=== PATIENT | female | born 1995 | race Caucasian/White ===

== ENCOUNTER 2024-05-16 09:09 | Outpatient (OUT) | payer OTHER, SELFPAY ==
--- NOTE | 2024-05-16 09:00 | CA_ITS ---
Patient Name: SILVIA WILKINS MR#: [id number] : 1995 Exam Date: 05/16/2024 Ordering Doctor: Non-Staff Physician ECHOCARDIOGRAM REPORT PROCEDURE: CA ECHO DOPPLER COMPLETE INDICATIONS: Palpitations, POTS COMPARISON: None. DESCRIPTION: COMPLETE ECHOCARDIOGRAM Real-time transthoracic echocardiography with 2D, M-mode, spectral and color flow Doppler performed. QUALITY: Technical quality was good. LEFT VENTRICLE: Normal chamber size. Normal left ventricular wall thickness. Normal systolic function. LV EF: Normal left ventricular ejection fraction, (>55%). DIASTOLIC: Normal diastolic function. ATRIAL SEPTUM: Visually appears intact. LEFT ATRIUM: Normal chamber size. RIGHT ATRIUM: Normal chamber size. RIGHT VENTRICLE: Normal chamber size. Normal right ventricular systolic function. TRICUSPID VALVE: Normal mobility and thickness. No stenosis with trivial regurgitation. Doppler studies reveal moderately (45-60) elevated right sided pressures. RVSP 52 mmHg MITRAL VALVE: Normal mobility and thickness. No evidence of mitral valve stenosis. There is no mitral annular calcification. Trivial mitral regurgitation. AORTIC VALVE: Normal trileaflet appearance. No visible sclerosis. Normal leaflet mobility. No evidence of aortic valve stenosis. No aortic regurgitation. AORTIC ROOT: Normal diameter and appearance. Ascending aorta is normal in size. PULMONIC VALVE: Normal thickness and mobility. No stenosis. No regurgitation. PERICARDIUM: No evidence of pericardial effusion. IVC: IVC is dilated (2.4 cm) with no collapse. PLEURA: CONCLUSION: 1. Normal left ventricular size and systolic function. LVEF is 55 to 60%. 2. Normal right ventricular size and systolic function. 3. No significant valvular dysfunction. 4. Moderately elevated right-sided pressures. RVSP is 52 mmHg. 5. Further investigation of causes of elevated right-sided pressures is recommended. Adult Echocardiography Procedure Report Left Ventricle LVEDD (3.7 - 5.6 cm): 4.85 cm LVESD (2.2 - 4.0 cm): 3.42 cm LVIVS thickness (0.6 - 1.2 cm): 0.75 cm LVPW thickness (0.5 - 1.0 cm): 0.49 cm E - e': 2.95 LVOT Max Gradient: 4.67 mm[Hg] LVOT Area (cm2): 1.08 m/s Peak Velocity (LVOT): 1.08 m/s Mean Velocity (LVOT): 0.73 m/s LVOT Diameter 2.13 cm Left Atrium LA Volume Index (2D A2C): 28.42 ml/m2 Left Atrium Systolic Dimension: 3.37 cm Mitral Valve MV E to A Ratio: 1.32 Mitral Valve A-Wave Peak Velocity: 0.52 m/s Mitral Valve E-Wave Peak Velocity: 0.68 m/s Right Ventricle Aorta AO Root Diam: 2.73 cm Ascending Ao Diam: 2.12 cm Aortic Valve AoV Area (Peak Partha): 2.94 cm2, 2.94 cm2 AoV Area (VTI): 2.73 cm2, 2.73 cm2 Peak Velocity(Antegrade Flow): 1.31 m/s Peak Gradient(Antegrade Flow): 6.86 mm[Hg] Mean Velocity(Antegrade Flow): 0.94 m/s Mean Gradient(Antegrade Flow): 3.95 mm[Hg] Velocity Time Integral: 32.01 cm Tricuspid Valve Peak Velocity (Regurgitant Flow): 3.05 m/s Pulmonic Valve Mean Gradient: 2.02 mm[Hg] Mean Velocity: 0.64 m/s Peak Velocity: 1.03 m/s, 1.06 m/s Peak Gradient: 4.53 mm[Hg], 4.23 mm[Hg] Right Atrium Right Atrium Systolic Pressure: 40.67 ml, 40.67 ml Dictated by: Liam Lorenz M.D. on 05/16/2024 at 18:41 Approved by: Liam Lorenz M.D. on 05/16/2024 at 18:44
== END 2024-05-16 09:10 | disposition home or self-care (01) ==
DX: R00.2 Palpitations (principal); G90.A Postural orthostatic tachycardia syndrome [POTS]; Z82.49 Family history of ischemic heart disease and other diseases of the circulatory system
CPT/HCPCS: 93306